=== PATIENT | male | born 1950 | race Caucasian/White ===

== ENCOUNTER 2022-10-06 15:51 | Emergency (ER) | payer MEDICARE, OTHER ==
[~2022-10-06] VITALS: Ht 182.9 cm; Wt 109.1 kg
[2022-10-06 16:47] LABS: HEMOGLOBIN 15.7 g/dl (13.5-18.0); MEAN CELL VOLUME 95 fl (80.0-100.0); MEAN CORPUSCULAR HEMOGLOBIN 32 pg (27-31); MEAN CORPUSCULAR HGB CONC 34 g/dl (33.0-37.0); MEAN PLATELET VOLUME 10.1 fl (7.4-10.4); PLATELET COUNT 170 K/mm3 (130-400); RED BLOOD COUNT 4.85 M/mm3 (4.20-5.60)
[2022-10-06 16:52] LABS: BASO % 0.4 % (0.0-2.0); MONO % 13.6 % (1.7-9.3)
[2022-10-06 16:53] LABS: EOS % 0.7 % (0.0-4.0)
[2022-10-06 17:05] LABS: ALBUMIN 3.7 gm/dL (3.4-4.8); BILIRUBIN,TOTAL 2.1 mg/dL (0.2-1.2); CALCIUM 9.2 mg/dL (8.4-10.2); CREATININE, serum 0.81 mg/dL (0.72-1.25); TOTAL PROTEIN 7.6 gm/dL (6.2-8.1)
[2022-10-06 17:11] LABS: TROPONIN-I 0.012 ng/mL (0.00-0.033)
[2022-10-06 18:22] LABS: COLLECTION METHOD CLEAN CATCH
[2022-10-06 18:57] LABS: URINE APPEARANCE Turbid (CLEAR/HAZY); URINE COLOR OTHER (YELLOW)
[2022-10-06 18:58] LABS: PH 5.5 (5.0-8.5); URINE GLUCOSE 3+ (NEGATIVE); URINE KETONE 4+ (NEGATIVE); URINE PROTEIN(semi-quant) 2+ (NEGATIVE)
[2022-10-06 18:59] LABS: URINE BLOOD 2+ (NEGATIVE); URINE NITRATE Positive (NEGATIVE); URINE UROBILINOGEN 0.2 E.U/dL (0.2-1.0)
[2022-10-06 19:18] LABS: MUCOUS Present (NOT PRESENT); SQUAMOUS EPITHELIAL 0-2 /hpf (0-10); URINE BACTERIA Occasional /hpf (NONE SEEN); URINE RBC 20-50 /hpf (0-2)
[2022-10-06] MEDS ORDERED: ZOFRAN ODT4 MG PO (19:18)
[2022-10-06] MEDS ORDERED: CEFTIN500 MG PO (19:22)
[2022-10-06 19:42] VITALS: BP 126/33; PULSE 92; TEMP 97.9
[2022-10-08] MEDS ORDERED: LEVAQUIN 5500 MG/TA1 PO (14:53)
== END 2022-10-06 19:45 | disposition home or self-care (01) ==
LOC: COL.ER 15:51
PROVIDERS: Physician Assistant
DX: N39.0 Urinary tract infection, site not specified (principal)
CPT/HCPCS: J0696; J1885; J2405; J7030